=== PATIENT | female | born 1975 | race Caucasian/White ===

== ENCOUNTER 2024-12-07 23:47 | Emergency (ER) | payer OTHER ==
[~2024-12-07] VITALS: Ht 154.9 cm; Wt 81.6 kg
[2024-12-08] MEDS ORDERED: methylPREDNISolone sod succ 125 MG VIAL IV ONE (00:05)
[2024-12-08] MEDS ORDERED: Glucagon Hydrochloride 1 MG SYR IV ONE (00:05)
[2024-12-08] MEDS ORDERED: Pantoprazole Sodium 40 MG VIAL IV ONE (00:05)
== END 2024-12-08 01:07 | disposition home or self-care (01) ==
LOC: ED 23:47
DX: K22.2 Esophageal obstruction (principal)

== ENCOUNTER 2025-03-20 14:26 | Emergency (ER) | payer OTHER ==
[~2025-03-20] VITALS: Wt 77.1 kg
[2025-03-20] MEDS ORDERED: MORPHINE Sulfate 2 MG/ML SYR IM ONE (14:35)
[2025-03-20] MEDS ORDERED: MELOXICAM15 MG PO (16:54)
== END 2025-03-20 17:45 | disposition home or self-care (01) ==
LOC: ED 14:26
DX: M54.2 Cervicalgia (principal); M25.512 Pain in left shoulder; M79.632 Pain in left forearm; M79.631 Pain in right forearm; V43.53XA Car driver injured in collision with pick-up truck in traffic accident, initial encounter; Y93.I9 Activity, other involving external motion; Y92.488 Other paved roadways as the place of occurrence of the external cause; Y99.8 Other external cause status